=== PATIENT | female | born 1950 | race Caucasian/White ===

== ENCOUNTER 2020-04-13 23:57 | Observation (INO) | payer MEDICARE, OTHER ==
[~2020-04-13] VITALS: Ht 162.6 cm; Wt 108.8 kg
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
[2020-04-14] MEDS ORDERED: MORPHINE SULFATE 4 MG/ML VIAL. IV ONE (00:30)
--- NOTE | 2020-04-14 01:25 | RAD ---
EXAM: XR HUMERUS_RT 2 VIEWS. HISTORY: Fall, pain. COMPARISON: None. FINDINGS: A fracture of the right proximal humerus involves at least the greater tuberosity. Nondispl aced surgical neck involvement is suspected, but not well-defined on this study. Rotator cuff arthropathy is suspected. 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 Inferi cleve directed clavicular spurs measure up to 3 mm. IMPRESSION: 1. A fracture of the proximal humerus involves at least the greater tuberosity. Nondisplaced involvem ent of the surgical neck cannot be excluded. Electronically signed by: Radha Gallagher MD (04/14/2020 1:22 AM) [facility]
[2020-04-14] MEDS ORDERED: ONDANSETRON PF 4 MG/2 ML VIAL. IV PRN (01:45)
[2020-04-14] MEDS ORDERED: FLUORESCEIN OPHTH TEST STRIP. OD ONE (02:00)
[2020-04-14] MEDS ORDERED: TETRACAINE 0.5% OPHTH SOLUTION 4ML BOTTLE. OD ONE (02:00)
[2020-04-14 02:04] LABS: BASO # 0.1 x10^3/uL (0.0-0.2); BASO % 1 % (0-3); EOS % 0 % (0-3); HEMATOCRIT 37.5 % (36.0-47.0); HEMOGLOBIN 12.1 g/dL (12.0-15.5); LYMPH # 1.2 x10^3/uL (1.0-4.8); LYMPH % 10 % (24-48); MEAN CORPUSCULAR HEMOGLOBIN 28 pg (25-35); MEAN CORPUSCULAR HGB CONC 32 g/dL (31-37); MEAN CORPUSCULAR VOLUME 88 fL (79-100); MONO # 0.4 x10^3/uL (0.0-1.1); MONO % 4 % (0-9); NEUT # 10.7 x10^3/uL (1.8-7.7); NEUT % 86 % (31-73); PLATELET COUNT 295 x10^3/uL (140-400); RED BLOOD COUNT 4.28 x10^6/uL (3.50-5.40); RED CELL DISTRIBUTION WIDTH 14.5 % (11.5-14.5); WHITE BLOOD COUNT 12.4 x10^3/uL (4.0-11.0)
--- NOTE | 2020-04-14 02:11 | RAD ---
EXAM: CT HEAD WITHOUT CONTRAST. HISTORY: Trauma, blurred vision right eye. TECHNIQUE: Computed tomography of the head was performed without intravenous contrast. One or more of the following individualized dose reduction techniques were utilized for this examination: 1. Automated exposure control. 2. Adjustment of the mA and/or kV according to patient size. 3. Use of iterative reconstruction technique. COMPARISON: None. FINDINGS: There is no intracranial hemorrhage. Hypoattenuation within the periventricular white matte r indicates mild chronic microangiopathic change. Prominence of the lateral ventricles and hemispheri c sulci indicates moderate atrophy. One right ethmoid air cell is opacified with relatively dense material suggesting a mucocele measurin g 11 x 10 mm. There is no significant mass effect. There are changes of bilateral cataract surgery. T he temporal bones are unremarkable. The calvarium reveals no suspicious lesions. IMPRESSION: 1. No acute intracranial findings. 2. Moderate atrophy and mild chronic microangiopathic white matter change. Electronically signed by: Radha Gallagher MD (04/14/2020 2:08 AM) [facility]
[2020-04-14 02:16] LABS: CALCIUM 9.4 mg/dL (8.5-10.1); CREATININE 1.2 mg/dL (0.6-1.0); GFR 44.4
[2020-04-14 02:22] LABS: ALBUMIN 3.5 g/dL (3.4-5.0); TOTAL BILIRUBIN 0.3 mg/dL (0.2-1.0); TOTAL PROTEIN 7.1 g/dL (6.4-8.2)
--- NOTE | 2020-04-14 02:24 | RAD ---
EXAM: 1. CT OF THE CHEST WITHOUT CONTRAST. 2. CT RIGHT SHOULDER WITHOUT CONTRAST. HISTORY: Fall, trauma, pain, fracture. TECHNIQUE: Computed tomography of the chest and right shoulder was performed without intravenous cont rast. One or more of the following individualized dose reduction techniques were utilized for this ex amination: 1. Automated exposure control. 2. Adjustment of the mA and/or kV according to patient size. 3. Use of iterative reconstruction technique. COMPARISON: None. FINDINGS: Images of the upper abdomen reveal at least mild diffuse hepatic steatosis. There are calci fied granulomas in the spleen. There is a small hiatal hernia. There are limitations from streak radha fact from arms down positioning. A comminuted fracture of the right proximal humerus involves the surgical neck, greater tuberosity an d lesser tuberosity. There is mild impaction along the surgical neck. The greater tuberosity fragment is mildly laterally displaced. The lesser tuberosity is comminuted but overall nondisplaced. The rotator cuff appears grossly intact by CT. Glenohumeral alignment is maintained with mild joint s pace narrowing. Acromioclavicular osteoarthritis is moderate. Inferiorly directed clavicular spurs me asure up to 3 mm. Bone windows reveal no suspicious lesions. There are no pathologically enlarged mediastinal or axillary lymph nodes. There is no pleural or juan cardial effusion. The heart is not enlarged. Mild coronary atherosclerotic calcifications are noted. The main pulmonary artery measures 3.3 cm. There is a 3 mm nodule in the right upper lobe on image 28. There is mild dependent atelectasis. IMPRESSION: 1. Comminuted fracture of the right proximal humerus involving the surgical neck and greater/lesser t uberosities as detailed above. 2. No evidence of intrathoracic injury. 3. Enlargement of the main pulmonary artery suggests pulmonary arterial hypertension. 4. A 3 mm nodule in the right upper lobe is likely benign at this small size and requires no further follow-up in the absence of strong risk factors. 5. Small hiatal hernia. Mild diffuse hepatic steatosis. Electronically signed by: Radha Gallagher MD (04/14/2020 2:21 AM) [facility]
[2020-04-14 02:28] VITALS: BP 153/95
--- NOTE | 2020-04-14 02:30 | NUR ---
ADMIT NOTE The patient, ERIC SIMPSON, 69 y/o, F admitted by DIANNA GARCAI MD, was given written information regarding hospital policies, unit procedures and contact persons. Patient orientated to unit, plan of care discussed, and admit packet reviewed. Patient belongings checked and left at patient's bedside. Patient's allergies verified and preferred pharmacy reviewed; patient unable to remember home medications at this time. Patient in bed, call light within reach, bed alarm active and bed in lowest/locked position; no other needs voiced at this time.
--- NOTE | 2020-04-14 02:45 | NUR ---
Eye exam performed by ER Physician at bedside; manually administered on eMAR. Addendum: 04/14/20 at 0325 by DIANA SLAUGHTER RN *Eye drops manually administered on eMAR*
[2020-04-14] MEDS: MORPHINE SULFATE 4 MG/ML VIAL. IV PRN ×2 (02:55→05:53)
[2020-04-14 03:29] LABS: % LYMPHS 20 % (24-48); % MONOS 3 % (0-10); % SEGS 77 % (35-66)
[2020-04-14 03:30] LABS: PLT ESTIMATE ADEQUATE (ADEQUATE)
[2020-04-14] MEDS ORDERED: MAG HYDROX/ALUMINUM HYD/SIMETH 30 ML ORAL.SUSP PO PRN (07:00)
[2020-04-14] MEDS ORDERED: ACETAMINOPHEN 325 MG TABLET. PO PRN (07:00)
[2020-04-14] MEDS ORDERED: HYDROcodone/APAP 5/325MG 1 TAB TABLET PO PRN ×2 (07:00)
[2020-04-14] MEDS ORDERED: ONDANSETRON PF 4 MG/2 ML VIAL. IVP PRN (07:00)
[2020-04-14] MEDS ORDERED: oxyCODONE IR 5 MG TABLET PO PRN (07:00)
[2020-04-14] MEDS ORDERED: BISACODYL 10 MG SUPP.RECT. PR PRN (07:00)
[2020-04-14] MEDS ORDERED: IBUPROFEN 400 MG TABLET. PO PRN (07:00)
[2020-04-14] MEDS ORDERED: CALCIUM CARBONATE 500 MG TAB.CHEW PO PRN (07:00)
[2020-04-14] MEDS ORDERED: MAGNESIUM HYDROXIDE 2,400 MG/30 ML ORAL.SUSP. PO PRN (07:00)
[2020-04-14] MEDS ORDERED: IV NORMAL SALINE 1000ML BAG 1,000 ML IV ONE (07:00)
[2020-04-14 07:13] VITALS: BP 128/68
[2020-04-14] MEDS ORDERED: traMADol 50 MG TABLET PO PRN (07:15)
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
--- NOTE | 2020-04-14 10:35 | PDOC2 ---
CONSULT Date of Consult Date of Consult DATE: 04/14/20 TIME: 10:19 Reason for Consult Reason for Consult: Right proximal humerus fracture Identification/Chief Complaint Chief Complaint Right shoulder pain Problems: (1) Proximal humerus fracture Source Source: Patient History of Present Illness Reason for Visit: 69 yo RHD F with mechanical fall when trying to catch her while he was falling on the evening of 04/13/20. Brought to ED for evaluation. No complaints of pain elsewhere. Sharp pain with ROM about the R shoulder. No radiation. Rest helps, motion aggravates. Denies chest pain, SOA, fever/chills, nausea/vomiting, numbness/tingling. Past Medical History Cardiovascular: HTN GI: Other (Ischemic colitis) Psych: Anxiety, Depression Musculoskeletal: Osteoarthritis Past Surgical History Past Surgical History: Colon Resection, Other (RLE ORIF/HWR (5 surgeries per her report)) Family History Family History: Diabetes, Hypertension Social History No ALCOHOL: rare Drugs: None Lives: with Family Current Problem List Problem List Problems Medical Problems: (1) Blurry vision, right eye Status: Acute (2) Contusion of rib on right side Status: Acute (3) Fall Status: Acute (4) Proximal humerus fracture Status: Acute Current Medications Current Medications Current Medications Morphine Sulfate (Morphine Sulfate) 4 mg 1X ONCE IV Last administered on 04/14/20at 00:31; Start 04/14/20 at 00:30; Stop 04/14/20 at 00:33; Status DC Ondansetron HCl (Zofran) 4 mg PRN Q8HRS PRN IV NAUSEA/VOMITING 1ST CHOICE; Start 04/14/20 at 01:45; Stop 04/14/20 at 07:07; Status DC Morphine Sulfate (Morphine Sulfate) 4 mg PRN Q2HR PRN IV SEVERE PAIN 7-10 Last administered on 04/14/20at 05:53; Start 04/14/20 at 01:45; Stop 04/14/20 at 07:06; Status DC Tetracaine HCl (Tetracaine) 1 drop 1X ONCE OD Last administered on 04/14/20at 02:45; Start 04/14/20 at 02:00; Stop 04/14/20 at 02:01; Status DC Fluorescein Sodium (Ful-Missy) 1 strip 1X ONCE OD Last administered on 04/14/20at 02:45; Start 04/14/20 at 02:00; Stop 04/14/20 at 02:01; Status DC Sodium Chloride 1,000 ml @ 125 mls/hr 1X ONCE IV Last administered on 04/14/20at 09:45; Start 04/14/20 at 07:00; Stop 04/14/20 at 14:59 Ondansetron HCl (Zofran) 4 mg PRN Q6HRS PRN IVP NAUSEA/VOMITING; Start 04/14/20 at 07:00 Al Hydroxide/Mg Hydroxide (Mylanta Plus Xs) 30 ml PRN Q3HRS PRN PO HEARTBURN / GAS; Start 04/14/20 at 07:00 Calcium Carbonate/ Glycine (Tums) 500 mg PRN Q3HRS PRN PO UPSET STOMACH; Start 04/14/20 at 07:00 Oxycodone HCl (Roxicodone) 5 mg PRN Q3HRS PRN PO BREAKTHROUGH PAIN; Start 04/14/20 at 07:00 Acetaminophen/ Hydrocodone Bitart (Lortab 5/325) 1 tab PRN Q4HRS PRN PO MILD PAIN 1-3; Start 04/14/20 at 07:00 Acetaminophen/ Hydrocodone Bitart (Lortab 5/325) 2 tab PRN Q4HRS PRN PO MODERATE PAIN, SEVERE PAIN; Start 04/14/20 at 07:00 Acetaminophen (Tylenol) 650 mg PRN Q6HRS PRN PO Headaches, Temp > 101.5F; Start 04/14/20 at 07:00 Ibuprofen (Motrin) 400 mg PRN Q6HRS PRN PO INFLAMMATION; Start 04/14/20 at 07:00 Magnesium Hydroxide (Milk Of Magnesia) 2,400 mg PRN Q12HR PRN PO CONSTIPATION; Start 04/14/20 at 07:00 Bisacodyl (Dulcolax Supp) 10 mg PRN DAILY PRN NM CONSTIPATION; Start 04/14/20 at 07:00 Heparin Sodium (Porcine) (Heparin Sodium) 5,000 unit Q8HRS SQ ; Start 04/14/20 at 14:00 Tramadol HCl (Ultram) 50 mg PRN Q6HRS PRN PO MOD - SEVERE PAIN, 1ST CHOICE; Start 04/14/20 at 07:15 Allergies Allergies: Coded Allergies: sulfamethoxazole (Verified Allergy, Severe, 04/14/20) trimethoprim (Verified Allergy, Severe, 04/14/20) Penicillins (Verified Allergy, Intermediate, 04/14/20) thimerosal (Verified Allergy, Mild, 04/14/20) ROS Review of System Negative unless otherwise stated in HPI. Physical Exam General: Alert, Oriented X3, Cooperative, No acute distress HEENT: Atraumatic, EOMI, Mucous membr. moist/pink Lungs: Normal air movement Heart: Regular rate Abdomen: Soft, No tenderness Extremities: Normal pulses Skin: No rashes, No breakdown Neuro: Sensation intact, Cranial nerves 3-12 NL Psych/Mental Status: Mental status NL MUSCULOSKELETAL: Other (RUE: pain with palpation to proximal humerus. Pain with PROM. AIN/PIN/Uln/Ax n. motor function grossly intact. Sensation intact over R/M/U/Ax to light touch. 5/5 finger/wrist strength. Fires deltoid *with pain. Palpable radial pulse. LUE/BLE normal in regards to sensation/alignment/ strength. No TTP along bony prominences. Pelvis stable. No pain with logroll BLE. ) Vitals VITALS Vital Signs Date Time Temp Pulse Resp B/P (MAP) Pulse Ox O2 Delivery O2 Flow Rate FiO2 04/14/20 07:15 Room Air 04/14/20 07:13 98.9 97 18 128/68 (88) 89 98.9 Labs Labs Laboratory Tests Test 04/14/20 01:50 White Blood Count 12.4 x10^3/uL (4.0-11.0) Red Blood Count 4.28 x10^6/uL (3.50-5.40) Hemoglobin 12.1 g/dL (12.0-15.5) Hematocrit 37.5 % (36.0-47.0) Mean Corpuscular Volume 88 fL (79-100) Mean Corpuscular Hemoglobin 28 pg (25-35) Mean Corpuscular Hemoglobin Concent 32 g/dL (31-37) Red Cell Distribution Width 14.5 % (11.5-14.5) Platelet Count 295 x10^3/uL (140-400) Neutrophils (%) (Auto) 86 % (31-73) Lymphocytes (%) (Auto) 10 % (24-48) Monocytes (%) (Auto) 4 % (0-9) Eosinophils (%) (Auto) 0 % (0-3) Basophils (%) (Auto) 1 % (0-3) Neutrophils # (Auto) 10.7 x10^3/uL (1.8-7.7) Lymphocytes # (Auto) 1.2 x10^3/uL (1.0-4.8) Monocytes # (Auto) 0.4 x10^3/uL (0.0-1.1) Eosinophils # (Auto) 0.0 x10^3/uL (0.0-0.7) Basophils # (Auto) 0.1 x10^3/uL (0.0-0.2) Segmented Neutrophils % 77 % (35-66) Lymphocytes % 20 % (24-48) Monocytes % 3 % (0-10) Platelet Estimate Adequate (ADEQUATE) Sodium Level 138 mmol/L (136-145) Potassium Level 4.0 mmol/L (3.5-5.1) Chloride Level 105 mmol/L (98-107) Carbon Dioxide Level 24 mmol/L (21-32) Anion Gap 9 (6-14) Blood Urea Nitrogen 30 mg/dL (7-20) Creatinine 1.2 mg/dL (0.6-1.0) Estimated GFR (Cockcroft-Gault) 44.4 BUN/Creatinine Ratio 25 (6-20) Glucose Level 117 mg/dL (70-99) Calcium Level 9.4 mg/dL (8.5-10.1) Total Bilirubin 0.3 mg/dL (0.2-1.0) Aspartate Amino Transf (AST/SGOT) 19 U/L (15-37) Alanine Aminotransferase (ALT/SGPT) 24 U/L (14-59) Alkaline Phosphatase 102 U/L (46-116) Total Protein 7.1 g/dL (6.4-8.2) Albumin 3.5 g/dL (3.4-5.0) Albumin/Globulin Ratio 1.0 (1.0-1.7) Images Images R humerus/shoulder XR/CT shows minimally displaced surgical neck/GT/LT fx. AC OA appreciated as well. Joint concentrically reduced. Assessment/Plan Assessment/Plan Assessment 69yo RHD F R proximal humerus fx, comminuted, minimally displaced, closed Mechanical fall Plan: Nonoperative treatment recommended. Sling to RUE (already in place) NWB RUE Ice to R shoulder PRN elbow flexion/extension pulse exercises demonstrated and can begin as pain allows. Can eat from Ortho standpoint. F/U 1-2 weeks with [facility]. Ortho sign off, available for questions. Susan Villasenor MD Orthopedic Surgery SUSAN VILLASENOR MD Apr 14, 2020 10:35
[2020-04-14 10:47] VITALS: BP 128/71
[2020-04-14] MEDS ORDERED: BUPR300T3 PO (10:50)
[2020-04-14] MEDS ORDERED: GABA-585 PO (10:50)
[2020-04-14] MEDS ORDERED: SUCR1TAB35 PO (10:50)
[2020-04-14] MEDS ORDERED: LEVO75TA90 PO (10:50)
[2020-04-14] MEDS ORDERED: PANT40TA77 PO (10:50)
[2020-04-14] MEDS ORDERED: LAMO150T4 PO (10:50)
[2020-04-14] MEDS ORDERED: ESCITALOPRAM OX20 MG PO (10:50)
[2020-04-14] MEDS ORDERED: VERA300C6 PO (10:50)
[2020-04-14] MEDS ORDERED: ALBU2.5V8 IH (10:50)
[2020-04-14] MEDS ORDERED: LIFI1DRO EACHEYE (10:50)
--- NOTE | 2020-04-14 12:33 | PDOC3 ---
Discharge Summary Visit Information Date of Admission: Apr 14, 2020 Date of Discharge: Apr 14, 2020 Final Diagnosis Problems Medical Problems: (1) Blurry vision, right eye Status: Acute (2) Contusion of rib on right side Status: Acute (3) Fall Status: Acute (4) Proximal humerus fracture Status: Acute Brief Hospital Course Allergies Allergies Coded Allergies Type Severity Reaction Last Updated Verified sulfamethoxazole Allergy Severe 04/14/20 Yes trimethoprim Allergy Severe 04/14/20 Yes Penicillins Allergy Intermediate 04/14/20 Yes thimerosal Allergy Mild 04/14/20 Yes Vital Signs Vital Signs Date Time Temp Pulse Resp B/P (MAP) Pulse Ox O2 Delivery O2 Flow Rate FiO2 04/14/20 10:47 98.5 84 18 128/71 (90) 90 Room Air 98.5 Lab Results Laboratory Tests Test 04/14/20 01:50 White Blood Count 12.4 x10^3/uL (4.0-11.0) Red Blood Count 4.28 x10^6/uL (3.50-5.40) Hemoglobin 12.1 g/dL (12.0-15.5) Hematocrit 37.5 % (36.0-47.0) Mean Corpuscular Volume 88 fL (79-100) Mean Corpuscular Hemoglobin 28 pg (25-35) Mean Corpuscular Hemoglobin Concent 32 g/dL (31-37) Red Cell Distribution Width 14.5 % (11.5-14.5) Platelet Count 295 x10^3/uL (140-400) Neutrophils (%) (Auto) 86 % (31-73) Lymphocytes (%) (Auto) 10 % (24-48) Monocytes (%) (Auto) 4 % (0-9) Eosinophils (%) (Auto) 0 % (0-3) Basophils (%) (Auto) 1 % (0-3) Neutrophils # (Auto) 10.7 x10^3/uL (1.8-7.7) Lymphocytes # (Auto) 1.2 x10^3/uL (1.0-4.8) Monocytes # (Auto) 0.4 x10^3/uL (0.0-1.1) Eosinophils # (Auto) 0.0 x10^3/uL (0.0-0.7) Basophils # (Auto) 0.1 x10^3/uL (0.0-0.2) Segmented Neutrophils % 77 % (35-66) Lymphocytes % 20 % (24-48) Monocytes % 3 % (0-10) Platelet Estimate Adequate (ADEQUATE) Sodium Level 138 mmol/L (136-145) Potassium Level 4.0 mmol/L (3.5-5.1) Chloride Level 105 mmol/L (98-107) Carbon Dioxide Level 24 mmol/L (21-32) Anion Gap 9 (6-14) Blood Urea Nitrogen 30 mg/dL (7-20) Creatinine 1.2 mg/dL (0.6-1.0) Estimated GFR (Cockcroft-Gault) 44.4 BUN/Creatinine Ratio 25 (6-20) Glucose Level 117 mg/dL (70-99) Calcium Level 9.4 mg/dL (8.5-10.1) Total Bilirubin 0.3 mg/dL (0.2-1.0) Aspartate Amino Transf (AST/SGOT) 19 U/L (15-37) Alanine Aminotransferase (ALT/SGPT) 24 U/L (14-59) Alkaline Phosphatase 102 U/L (46-116) Total Protein 7.1 g/dL (6.4-8.2) Albumin 3.5 g/dL (3.4-5.0) Albumin/Globulin Ratio 1.0 (1.0-1.7) Laboratory Tests Test 04/14/20 01:50 White Blood Count 12.4 x10^3/uL (4.0-11.0) Red Blood Count 4.28 x10^6/uL (3.50-5.40) Hemoglobin 12.1 g/dL (12.0-15.5) Hematocrit 37.5 % (36.0-47.0) Mean Corpuscular Volume 88 fL (79-100) Mean Corpuscular Hemoglobin 28 pg (25-35) Mean Corpuscular Hemoglobin Concent 32 g/dL (31-37) Red Cell Distribution Width 14.5 % (11.5-14.5) Platelet Count 295 x10^3/uL (140-400) Neutrophils (%) (Auto) 86 % (31-73) Lymphocytes (%) (Auto) 10 % (24-48) Monocytes (%) (Auto) 4 % (0-9) Eosinophils (%) (Auto) 0 % (0-3) Basophils (%) (Auto) 1 % (0-3) Neutrophils # (Auto) 10.7 x10^3/uL (1.8-7.7) Lymphocytes # (Auto) 1.2 x10^3/uL (1.0-4.8) Monocytes # (Auto) 0.4 x10^3/uL (0.0-1.1) Eosinophils # (Auto) 0.0 x10^3/uL (0.0-0.7) Basophils # (Auto) 0.1 x10^3/uL (0.0-0.2) Segmented Neutrophils % 77 % (35-66) Lymphocytes % 20 % (24-48) Monocytes % 3 % (0-10) Platelet Estimate Adequate (ADEQUATE) Sodium Level 138 mmol/L (136-145) Potassium Level 4.0 mmol/L (3.5-5.1) Chloride Level 105 mmol/L (98-107) Carbon Dioxide Level 24 mmol/L (21-32) Anion Gap 9 (6-14) Blood Urea Nitrogen 30 mg/dL (7-20) Creatinine 1.2 mg/dL (0.6-1.0) Estimated GFR (Cockcroft-Gault) 44.4 BUN/Creatinine Ratio 25 (6-20) Glucose Level 117 mg/dL (70-99) Calcium Level 9.4 mg/dL (8.5-10.1) Total Bilirubin 0.3 mg/dL (0.2-1.0) Aspartate Amino Transf (AST/SGOT) 19 U/L (15-37) Alanine Aminotransferase (ALT/SGPT) 24 U/L (14-59) Alkaline Phosphatase 102 U/L (46-116) Total Protein 7.1 g/dL (6.4-8.2) Albumin 3.5 g/dL (3.4-5.0) Albumin/Globulin Ratio 1.0 (1.0-1.7) Brief Hospital Course Ms. Santo is a 69 old female who presented with right humeral fracture, ANTONIETTA. She was treated with IV fluids. Consultation placed to orthopedic surgery. She was recommended nonoperative treatment and sling to RUE. F/U 1-2 weeks with [facility]. Discharge Information Condition at Discharge: Stable Follow Up: Weeks Disposition/Orders: D/C to Home Scheduled Bupropion Hcl (Wellbutrin Xl) 300 Mg Tab.er.24h, 1 TAB PO DAILY for depression, #90 Ref 3 (Reported) Entered as Reported by: GIOVANI NAVARRO on 04/14/201049 Last Action: New Order on 04/14/201049 by GIOVANI NAVARRO Escitalopram Oxalate (Escitalopram Oxalate) 20 Mg Tablet, 1 TAB PO DAILY for depression, #30 Ref 5 (Reported) Entered as Reported by: GIOVANI NAVARRO on 04/14/201049 Last Action: New Order on 04/14/201049 by GIOVANI NAVARRO Gabapentin (Gabapentin ) 100 Mg Capsule, 100 MG PO TID for NEUROGENIC PAIN, (Reported) Entered as Reported by: GIOVANI NAVARRO on 04/14/201049 Last Action: New Order on 04/14/201049 by GIOVANI NAVARRO Lamotrigine (Lamotrigine) 150 Mg Tablet, 1 TAB PO DAILY for Bipolar, #30 Ref 1 (Reported) Entered as Reported by: GIOVANI NAVARRO on 04/14/201049 Last Action: New Order on 04/14/201049 by GIOVANI NAVARRO Levothyroxine Sodium (Synthroid) 75 Mcg Tablet, 1 TAB PO DAILY for Hypothyroidism, #30 Ref 5 (Reported) Entered as Reported by: GIOVANI NAVARRO on 04/14/201049 Last Action: New Order on 04/14/201049 by GIOVANI NAVARRO Lifitegrast (Xiidra) 1 Each Droperette, 1 DROP EACHEYE BID for Dry eye for 30 Days, #60 Ref 0 (Reported) Entered as Reported by: GIOVANI NAVARRO on 04/14/201049 Last Action: New Order on 04/14/201049 by GIOVANI NAVARRO Pantoprazole Sodium (Protonix ) 40 Mg Tablet.dr, 40 MG PO BIDAC for GERD, (Reported) Entered as Reported by: GIOVANI NAVARRO on 04/14/201049 Last Action: New Order on 04/14/201049 by GIOVANI NAVARRO Sucralfate (Carafate) 1 Gm Tablet, 1 TAB PO QID for Ulcers for 30 Days, #120 Ref 0 (Reported) Entered as Reported by: GIOVANI NAVARRO on 04/14/201049 Last Action: New Order on 04/14/201049 by GIOVANI NAVARRO Verapamil Hcl (Verapamil Er Pm) 300 Mg Cap24h.pct, 1 CAP PO DAILY for BP for 30 Days, #30 Ref 0 (Reported) Entered as Reported by: GIOVANI NAVARRO on 04/14/201049 Last Action: New Order on 04/14/201049 by GIOVANI NAVARRO Scheduled PRN Albuterol Sulfate (Proair Hfa Inhaler) 8.5 Gm Hfa.aer.ad, 2 PUFF IH PRN Q4-6HRS PRN for wheezing for 21 Days, #1 Ref 0 (Reported) Entered as Reported by: GIOVANI NAVARRO on 04/14/201049 Last Action: New Order on 04/14/201049 by GIOVANI NAVARRO Justicifation of Admission Dx: Justifications for Admission: Justification of Admission Dx: Yes (Right humeral fracture, ANTONIETTA) DIANNA GARCIA MD Apr 14, 2020 12:33
[2020-04-14] MEDS ORDERED: HEPARIN for SUB-Q USE 5,000 UNIT/ML VIAL. SQ SCH (14:00)
[2020-04-14 14:25] VITALS: BP 121/65
--- NOTE | 2020-04-14 14:44 | SNU/HH DC ---
DISCHARGE WITH HOME HEALTH DISCHARGE INFORMATION: Discharge Date: Apr 14, 2020 Final Diagnosis: Problems Medical Problems: (1) Blurry vision, right eye Status: Acute (2) Contusion of rib on right side Status: Acute (3) Fall Status: Acute (4) Proximal humerus fracture Status: Acute Condition on Discharge: Stable CODE STATUS: Code Status: Full HOME HEALTH: Face to Face: I certify this patient is under my care and that I, or a nurse practitioner or physician's assistant nurse manager working with me, had a face to face encounter that meets the physician face to face encounter requirements with this patient on 04/14/2020. Medical Complications: Other RN For Eval/Treatment: Yes Home Health Aide For: Self-care Pt Meets Homebound Status: Fatigue w/ amb., Frequent falls w/ injury POST DISCHARGE ORDERS: Activity Instructions for Disc: Activity as tolerated Bathing Instructions: Shower-keep dressing dry DIET AFTER DISCHARGE: Cardiac FOLLOW-UP: Follow up with: PCP as needed. Follow Up With: Dr. Villasenor in 1-2 weeks. [phone] CERTIFICATION STATEMENT: Certification Statement: Certification Statement: Based on the above finding, I certify that this patient is confined to the home and needs intermittent correction care, physical therapy and/or speech therapy, or continues to need occupational therapy.~ This patient is under my care, and I have initiated the establishment of the plan of care.~ This patient will be followed by myself or a community physician who will periodically review the plan of care. Home Meds Reported Medications Levothyroxine Sodium (SYNTHROID) 75 Mcg Tablet, 1 TAB PO DAILY for Hypothyroidism, #30 TAB 5 Refills 04/14/20 Gabapentin (GABAPENTIN ) 100 Mg Capsule, 100 MG PO TID for NEUROGENIC PAIN, CAP 04/14/20 Pantoprazole Sodium (PROTONIX ) 40 Mg Tablet.dr, 40 MG PO BIDAC for GERD, TAB 04/14/20 Lifitegrast (Xiidra) 1 Each Droperette, 1 DROP EACHEYE BID for Dry eye for 30 Days, #60 VIAL 0 Refills 04/14/20 Sucralfate (CARAFATE) 1 Gm Tablet, 1 TAB PO QID for Ulcers for 30 Days, #120 TAB 0 Refills 04/14/20 Escitalopram Oxalate (ESCITALOPRAM OXALATE) 20 Mg Tablet, 1 TAB PO DAILY for depression, #30 TAB 5 Refills 04/14/20 Verapamil Hcl (VERAPAMIL ER PM) 300 Mg Cap24h.pct, 1 CAP PO DAILY for BP for 30 Days, #30 CAP 0 Refills 04/14/20 Bupropion Hcl (WELLBUTRIN XL) 300 Mg Tab.er.24h, 1 TAB PO DAILY for depression, #90 TAB 3 Refills 04/14/20 Lamotrigine (LAMOTRIGINE) 150 Mg Tablet, 1 TAB PO DAILY for Bipolar, #30 TAB 1 Refill 04/14/20 Albuterol Sulfate (PROAIR HFA INHALER) 8.5 Gm Hfa.aer.ad, 2 PUFF IH PRN Q4-6HRS PRN for wheezing for 21 Days, #1 INHALER 0 Refills 04/14/20 DIANNA GARCIA MD Apr 14, 2020 14:44
--- NOTE | 2020-04-14 15:02 | NUR ---
Pt. discharged to home with HH and Rx, verbalized understanding of discharge instructions. Right arm sling in place.
== END 2020-04-14 15:00 | disposition home or self-care (01) ==
LOC: ER 23:57 → 4 NORTH 04-14 01:13
PROVIDERS: ADMIT Family Medicine; ATTEND Family Medicine
DX: S42.251A Displaced fracture of greater tuberosity of right humerus, initial encounter for closed fracture (principal); S20.211A Contusion of right front wall of thorax, initial encounter; H53.8 Other visual disturbances; I10 Essential (primary) hypertension; E03.9 Hypothyroidism, unspecified; E86.0 Dehydration; J98.11 Atelectasis; K44.9 Diaphragmatic hernia without obstruction or gangrene; K76.0 Fatty (change of) liver, not elsewhere classified; M19.90 Unspecified osteoarthritis, unspecified site; N17.0 Acute kidney failure with tubular necrosis; Z90.710 Acquired absence of both cervix and uterus; Z98.890 Other specified postprocedural states; W18.30XA Fall on same level, unspecified, initial encounter; Y93.89 Activity, other specified; Y92.89 Other specified places as the place of occurrence of the external cause; Y99.8 Other external cause status
CPT/HCPCS: 36415; 70450; 71250; 73060; 73200; 80053; 85007; 85025; 96361; 96374; 96376; 99284; G0378; J2270; J7030; G0379

== ENCOUNTER → 2020-05-20 | Outpatient (CLI) | payer MEDICARE, OTHER ==
[~2020-05-20] MED LIST: ALBU2.5V8 IH; BUPR300T3 PO; ESCITALOPRAM OX20 MG PO; GABA-585 PO; LAMO150T4 PO; LEVO75TA90 PO; LIFI1DRO EACHEYE; PANT40TA77 PO; SUCR1TAB35 PO; VERA300C6 PO
--- NOTE | 2020-05-26 14:19 | SLEEP ---
DATE OF STUDY: 05/20/2020 HOME SLEEP STUDY The patient is a 69-year-old, who weighs 220 pounds with a BMI of 37.8. The patient underwent home sleep study performed at [facility]. Total recording time was 708 minutes. During the night study, the patient had 19 obstructive apneas, 9 central apneas, 181 mixed apneas and 81 hypopneas. The patient's AHI was 32 per hour. Nocturnal oximetry study revealed an average oxygen saturation 90% with the lowest of 81%. 146 minutes were spent with oxygen saturation of less than 90% and 88 minutes with saturation less than 85%. IMPRESSION: 1. Severe obstructive sleep apnea at an AHI of 32 per hour. 2. Nocturnal hypoxia secondary to obstructive sleep apnea and suspected hypoventilation. RECOMMENDATIONS: 1. The patient should return to the sleep lab for CPAP titration study. Alternate treatment option includes home auto PAP titration. 2. Once the patient is optimally treated with CPAP, then follow up in 4-6 weeks to assess compliance and to document clinical improvement. 3. Weight loss is strongly advised. 4. Avoid AFTERNOON NANNY depressants. 5. Cautioned regarding driving until symptoms of sleep apnea resolve with CPAP. GERRY SHEARER MD DR: MARIE/emi JOB#: [id number] / [id number] GAVIN Berry
== END ==
LOC: RT 06:01
PROVIDERS: ATTEND Internal Medicine Critical Care Medicine
DX: G47.33 Obstructive sleep apnea (adult) (pediatric) (principal); G47.34 Idiopathic sleep related nonobstructive alveolar hypoventilation
CPT/HCPCS: G0399

== ENCOUNTER → 2020-06-16 | Outpatient (CLI) | payer MEDICARE, OTHER ==
--- NOTE | 2020-06-17 09:58 | SLEEP ---
DATE OF STUDY: 06/16/2020 SLEEP STUDY ATTENDING PHYSICIAN: ____. The patient is a 69-year-old who weighs 235 pounds with a BMI of 40. The patient's [place] score was 10. The patient had a diagnosis of sleep apnea, which was severe with an AHI of 32 per hour by home sleep study. The patient will return for CPAP titration study. During the night study, the patient spent 418 minutes in bed and slept for 189 minutes with a low sleep efficiency of 45%. Sleep latency was 107 minutes with absent REM sleep. Sleep architecture showed increased stage I and stage II sleep, normal slow wave and absent REM sleep. EKG monitoring revealed normal sinus rhythm. Average heart rate 72 beats per minute. PLMS were seen at index of 23 per hour and 3 per hour caused EEG arousals. The patient was started on CPAP at 5 cm water and titrated up to 12 cm of water. With increasing pressure treatment emergent central apneas were observed. Best results were seen at a CPAP pressure of 11 cm water. The patient slept for 60 minutes. The patient's AHI was reduced to 7 per hour. The patient had supine sleep, but no REM sleep. Oxygen saturation remained above 92%. IMPRESSION: 1. Severe sleep apnea diagnosed by home sleep study. 2. Mild to moderate PLMS. 3. No significant nocturnal hypoxia while on therapeutic CPAP. RECOMMENDATIONS: 1. CPAP at 11 cm water should be used on a nightly basis. 2. Follow up in 4-6 weeks to assess compliance with CPAP and to document clinical improvement. 3. Weight loss is advised. 4. Avoid PIE MAKER depressants. 5. Cautioned regarding driving until symptoms of sleep apnea resolve with the use of CPAP. 6. PLMS does not need to be treated unless the patient has symptoms of restless legs during the day. MARIE/ENEDINA/MOH DR: Kia TID: [id number]
== END ==
LOC: RT 18:58
PROVIDERS: ATTEND Internal Medicine Critical Care Medicine
DX: G47.33 Obstructive sleep apnea (adult) (pediatric) (principal); G47.61 Periodic limb movement disorder
CPT/HCPCS: 95811